=== PATIENT | male | born 1995 | race Caucasian/White ===

== ENCOUNTER 2017-03-25 20:40 | Emergency (ER) | payer SELFPAY ==
[~2017-03-25] VITALS: Ht 172.7 cm; Wt 73.0 kg
[2017-03-26 01:26] VITALS: BP 121/76
== END 2017-03-26 02:00 | disposition home or self-care (01) ==
LOC: ER 20:40
DX: S09.90XA Unspecified injury of head, initial encounter (principal); Y08.89XA Assault by other specified means, initial encounter; Y93.89 Activity, other specified; Y92.89 Other specified places as the place of occurrence of the external cause; Y99.8 Other external cause status
CPT/HCPCS: 70450; 70486; 99284